=== PATIENT | female | born 1970 | race Caucasian/White ===

== ENCOUNTER → 2018-11-09 | Outpatient (CLI) | payer BC ==
--- NOTE | 2018-11-12 11:50 | MM ---
Reason for exam: screening (asymptomatic). Last mammogram was performed 1 year and 6 months ago. Physical Findings: A clinical breast exam by your physician is recommended on an annual basis and results should be correlated with mammographic findings. MG 3D Screening Mammo W/Cad Bilateral CC and MLO view(s) were taken. Prior study comparison: May 19, 2017, bilateral MG 3d screening mammo w/cad. December 10, 2010, CAD bilateral diagnostic mammogram. The breast tissue is heterogeneously dense. This may lower the sensitivity of mammography. Stable benign calcifications. There is no discrete abnormality. No significant changes when compared with prior studies. ASSESSMENT: Benign, BI-RAD 2 RECOMMENDATION: Routine screening mammogram of both breasts in 1 year.
== END ==
LOC: RADMAMWWP 08:59 → MERGE 09:20
PROVIDERS: ATTEND Obstetrics & Gynecology
DX: Z12.31 Encounter for screening mammogram for malignant neoplasm of breast (principal)
CPT/HCPCS: 77063; 77067

== ENCOUNTER → 2022-08-09 | Outpatient (CLI) | payer BC ==
[2022-08-09 14:29] LABS: Basophils # (A) 0.04 X 10*3/uL (0.00-0.10); Basophils % (A) 0.7 %; Eosinophils # (A) 0.11 X 10*3/uL (0.04-0.35); Eosinophils % (A) 1.9 %; HCT 43.1 % (37.2-46.3); Immature Grans, Automated 0.9 %; Lymphocytes # (A) 1.62 X 10*3/uL (0.90-5.00); Lymphocytes % (A) 27.9 %; MCH 28.9 pg (27.0-32.0); MCHC 32.5 g/dL (32.0-37.0); MCV 88.9 fL (80.0-97.0); Mean Platelet Volume 11.2 fL (9.5-12.2); Monocytes # (A) 0.46 X 10*3/uL (0.20-1.00); Monocytes % (A) 7.9 %; NRBC Per 100 WBC 0 /100 WBCS (0.0-0.0); Neutrophils # (A) 3.52 X 10*3/uL (1.80-7.70); Neutrophils % (A) 60.7 %; Platelet Count 306 X 10*3/uL (140-440); RBC 4.85 X 10*6/uL (4.10-5.20); RDW 13.3 % (11.5-14.5)
[2022-08-09 15:58] LABS: Estradiol 5.8 pg/mL; T4, Free (Free Thyroxine) 1.07 ng/dL (0.800-1.800)
== END | disposition home or self-care (01) ==
LOC: LABPAT 09:45
PROVIDERS: ATTEND Obstetrics & Gynecology
DX: Z01.818 Encounter for other preprocedural examination (principal); I45.19 Other right bundle-branch block; N93.8 Other specified abnormal uterine and vaginal bleeding; R94.31 Abnormal electrocardiogram [ECG] [EKG]
CPT/HCPCS: 82670; 83001; 84439; 84443; 85025; 93005

== ENCOUNTER → 2022-08-12 | Outpatient (CLI) | payer BC ==
--- NOTE | 2022-08-15 08:13 | MM ---
Reason for Exam: Screening (asymptomatic). Last mammogram was performed 3 year(s) and 9 month(s) ago. Patient History: Menarche at age 10. First Full-Term at age 27. Perimenopausal. Risk Values: Eliza 5 year model risk: 1.3%. NCI Lifetime model risk: 10.5%. Prior Study Comparison: 12/10/2010 Bilateral Diagnostic Mammogram, [facility]. 05/19/2017 Bilateral Screening Mammogram, [facility]. 11/09/2018 Bilateral Screening Mammogram, [facility]. Tissue Density: The breast tissue is heterogeneously dense. This may lower the sensitivity of mammography. Findings: Analyzed By CAD. There is no suspicious group of microcalcifications or new suspicious mass in either breast. Overall Assessment: Negative, BI-RAD 1 Management: Screening Mammogram of both breasts in 1 year. A clinical breast exam by your physician is recommended on an annual basis and results should be correlated with mammographic findings. [facility] will attempt to contact patient to return for supplemental views and ultrasound if indicated. Electronically signed and approved by: John Verdin DO
== END | disposition home or self-care (01) ==
LOC: RADMAMWWP 14:34
PROVIDERS: ATTEND Obstetrics & Gynecology
DX: Z12.31 Encounter for screening mammogram for malignant neoplasm of breast (principal)
CPT/HCPCS: 77063; 77067

== ENCOUNTER 2022-08-17 05:56 | Day surgery (SDC) | payer BC ==
[2022-08-12 12:34] VITALS: BMI 27.4
--- NOTE | 2022-08-16 07:42 | P.HPOB ---
History of Present Illness H&P Date: 08/16/22 Chief Complaint: Dysfunctional uterine bleeding, endometrial thickening. This patient is a pleasant 51-year-old 2 para 2 female who presented to my office in June with complaints of heavy irregular bleeding for about 6 months. Patient not been in the office in about 3 years. She said she does miss some menstrual cycles however became heavy and irregular. Patient had a pelvic ultrasound which showed endometrial thickening to 15 mm. She also had 2 fibroids but these were not impinging the uterine cavity. Patient now presents for hysteroscopy D&C for further evaluation. Review of Systems Genitourinary: Reports abnormal vaginal bleeding Menstruation: Reports as per HPI Past Medical History Additional Past Medical History / Comment(s): kidney stones. THICKENED UTERINE LINING WITH FIBROIDS History of Any Multi-Drug Resistant Organisms: None Reported Past Surgical History: Breast Surgery, Cholecystectomy Additional Past Surgical History / Comment(s): breast biopsy. LITHOTRIPSY. TUMMY TUCK Past Anesthesia/Blood Transfusion Reactions: No Reported Reaction Past Psychological History: No Psychological Hx Reported Smoking Status: Never smoker Past Alcohol Use History: None Reported Past Drug Use History: None Reported - Past Family History Mother History Unknown: Yes Additional Family Medical History / Comment(s): ADOPTED Medications and Allergies Home Medications Medication Instructions Recorded Confirmed Type No Known Home Medications 08/12/22 08/12/22 History Allergies Allergy/AdvReac Type Severity Reaction Status Date / Time No Known Allergies Allergy Verified 08/12/22 12:21 Exam - OBG Physical Exam Abdomen: bowel sounds normal, no diffuse tenderness, no bruit present, no guarding noted, no hepatomegaly, no splenomegaly, no mass Vulva: both: normal Vagina: normal moisture, no discharge Cervix: no lesion, no discharge Uterus: enlarged Results Transvaginal ultrasound on June 24 showed to fibroids 5.4 and 2.8 cm. Patient's endometrium was thickened to 15.4 mm. Assessment and Plan Assessment: This is a pleasant 51-year-old 2 para 2 female with dysfunctional uterine bleeding and endometrial thickening on transvaginal ultrasound. Plan is hysteroscopy and D&C for further evaluation. Patient I discussed the surgery and risks including risks of infection, bleeding, and/or uterine perforation. All the patient's questions are answered and a written consent is obtained. (1) Dysfunctional uterine bleeding Status: Acute Code(s): N93.8 - OTHER SPECIFIED ABNORMAL UTERINE AND VAGINAL BLEEDING SNOMED Code(s): 71501521847923 (2) Uterine fibroid Status: Acute Code(s): D25.9 - LEIOMYOMA OF UTERUS, UNSPECIFIED SNOMED Code(s): 48127960 (3) Endometrial thickening on ultrasound Status: Acute Code(s): R93.89 - ABNORMAL FINDINGS ON DX IMAGING OF OTH BODY STRUCTURES SNOMED Code(s): 430203371
[~2022-08-17 05:56] MED LIST: DEXAMETHASONE SOD PHOSPHATE 4 MG/ML 1 ML VIAL IV ONE; HYDROmorphone 0.5 MG/0.5 ML SYRINGE IVP PRN; LACTATED RINGERS 1,000 ML IV SCH; LIDOCAINE 1% (10MG/ML) FOR IV START INTRADERMA PRN; ONDANSETRON 4 MG/2 ML VIAL IVP ONE; Pre Op ABX Message 1 EACH MISC MISCELLANE ONE; SCOPOLAMINE 1 MG/72 HR PATCH TRANSDERM ONE
[2022-08-17 06:23] VITALS: RESP 16
[2022-08-17] MEDS ORDERED: PROPOFOL 10 MG/ML 20 ML VIAL IV ONE (06:55)
[2022-08-17] MEDS ORDERED: fentaNYL (PF) 50 MCG/ML 2 ML AMP ONE (06:55)
[2022-08-17] MEDS ORDERED: LIDOCAINE 2% INJ 20 MG/ML (2 ML VIAL) ONE (06:55)
[2022-08-17] MEDS ORDERED: MIDAZOLAM 2 MG/2 ML VIAL ONE (06:55)
[2022-08-17] MEDS ORDERED: KETOROLAC 15 MG/ML 1 ML VIAL IVP ONE (07:33)
--- NOTE | 2022-08-17 07:33 | P.OP ---
Date of Procedure: 08/17/22 Preoperative Diagnosis: #1: Dysfunctional uterine bleeding. 2: Abnormal endometrial thickening on ultrasound. Postoperative Diagnosis: Same, endometrial polyps Procedure(s) Performed: #1: Hysteroscopy. #2: Dilation and curettage. #3: Polypectomy Anesthesia: MAC Surgeon: Mauri Moran Estimated Blood Loss (ml): 10 Urine output (ml): 20 Pathology: other (Uterine curettings and endometrial polyps) Condition: stable Disposition: PACU Indications for Procedure: Please see dictated H&P for intimate details of this patient's admission. In brief summary this pleasant 51-year-old 2 para 2 female who presented to [facility] with complaints of dysfunctional uterine bleeding and had a transvaginal ultrasound which showed endometrial thickening. Patient's hormone levels were consistent with menopause and I recommended she proceed with hysteroscopy D&C for further evaluation. Patient does understand the surgery and risks and risks of infection, bleeding, possible uterine perforation. All the patient's questions are answered and written consent is obtained. Operative Findings: This patient had multiple large polyps of the endometrium that were benign appearing Description of Procedure: This patient is taken to the operating room where she is laid in supine position. She subsequent undergoes general mask anesthesia without incident. With an adequate level of anesthesia was placed in dorsal lithotomy position. She has a vaginal perineal prep and drape. Examination under anesthesia shows a mid position uterus. I placed a weighted speculum posterior vagina. Bladder is drained for 20 mL of clear urine. The Allis clamps and placed on the anterior lip of the cervix. Uterus is then gently sounded to approximately 7 cm. The cervix is then gently dilated to allow the hysteroscope easily and the uterine cavity. Using saline solution, hysteroscopy is performed and the uterine cavity is visualized. There are multiple polyps or large but benign appearing. The lining itself does look thin and somewhat atrophic. With this done the hysteroscope was removed. Cervix is dilated more to allow the polyp forceps easily into the uterine cavity. Multiple passes are made and all the polyps are removed. These are quite large. With this done a gentle but thorough 4 quadrant curettage is done. At this point procedure is ended. The Allis clamp and weighted speculum removed. All counts are correct 3. There are no complications. Patient is awakened from anesthesia and taken recovery room satisfactory condition.
[2022-08-17 07:38] VITALS: TEMP 96.8
[2022-08-17 08:20] VITALS: BP 144/84; PULSE 73
== END 2022-08-17 08:50 | disposition home or self-care (01) ==
LOC: OR 05:56
PROVIDERS: ATTEND Obstetrics & Gynecology
DX: N84.0 Polyp of corpus uteri (principal); N93.8 Other specified abnormal uterine and vaginal bleeding; R93.89 Abnormal findings on diagnostic imaging of other specified body structures; D25.9 Leiomyoma of uterus, unspecified; Z87.442 Personal history of urinary calculi; Z90.49 Acquired absence of other specified parts of digestive tract; Z98.82 Breast implant status; Z98.890 Other specified postprocedural states
CPT/HCPCS: 58558; 81025; 88305; J2250; J1100; J2405; J3010; J1885; J2704; J2001

== ENCOUNTER → 2023-05-26 | Day surgery (SDC) | payer BC ==
[2023-05-23 13:34] VITALS: BMI 28.3
[~2023-05-26] MED LIST changes: -DEXAMETHASONE SOD PHOSPHATE 4 MG/ML 1 ML VIAL IV ONE; -HYDROmorphone 0.5 MG/0.5 ML SYRINGE IVP PRN; +LACTATED RINGERS 1,000 ML IV ONE; -ONDANSETRON 4 MG/2 ML VIAL IVP ONE; +PROPOFOL 10 MG/ML 20 ML VIAL IV ONE; -Pre Op ABX Message 1 EACH MISC MISCELLANE ONE; -SCOPOLAMINE 1 MG/72 HR PATCH TRANSDERM ONE
[2023-05-26 09:35] VITALS: TEMP 97.7
--- NOTE | 2023-05-26 09:52 | P.PCN ---
Date of Procedure: 05/26/23 Procedure(s) Performed: BRIEF HISTORY: Patient is a 52-year-old pleasant white female scheduled for an elective colonoscopy as a part of screening for colon cancer. PROCEDURE PERFORMED: Colonoscopy. PREOPERATIVE DIAGNOSIS: Screening for colon cancer. IV sedation per Anesthesia. PROCEDURE: After informed consent was obtained, the patient, was brought into the endoscopy unit. IV sedation was administered by Anesthesia under continuous monitoring. Digital rectal examination was normal. Initially the Olympus CF-160 flexible video colonoscope was then inserted in the rectum, gradually advanced into the cecum without any difficulty. Careful examination was performed as the scope was gradually being withdrawn. Ileocecal valve and the appendiceal orifice were visualized and appeared normal. Prep was excellent. Mucosa of the cecum, ascending colon, transverse colon, descending colon, sigmoid colon, and rectum appeared normal. Scattered sigmoid diverticulosis. Retroflexion was performed in the rectum and no lesions were seen. The patient tolerated the procedure well. IMPRESSION: Normal-appearing colon from rectum to cecum with no evidence of colorectal neoplasia. Scattered sigmoid diverticulosis. RECOMMENDATIONS: Findings of this examination were discussed with the patient as well as a family.. She was advised to have a repeat screening colonoscopy in 10 years.
[2023-05-26 10:19] VITALS: BP 143/72; PULSE 64; RESP 16
== END ==
LOC: ORWHC2ENDO 08:50
PROVIDERS: ATTEND Internal Medicine Gastroenterology
DX: Z12.11 Encounter for screening for malignant neoplasm of colon (principal); K57.30 Diverticulosis of large intestine without perforation or abscess without bleeding; Z79.82 Long term (current) use of aspirin; Z79.899 Other long term (current) drug therapy
CPT/HCPCS: 81025; 45378; J2704

== ENCOUNTER → 2024-10-01 | Outpatient (CLI) | payer BC ==
--- NOTE | 2024-10-01 08:18 | US ---
EXAMINATION TYPE: US abdomen complete DATE OF EXAM: 10/01/2024 COMPARISON: NONE CLINICAL INDICATION: Female, 53 years old with history of N20.0 KIDNEY STONE; Pt states generalized A BD pain, states history of kidney stones, GB surgically absent TECHNIQUE: Grayscale and color Doppler imaging of the abdomen was performed. FINDINGS: EXAM MEASUREMENTS: Liver Length: 16.6 cm CBD: 0.8 cm, color Doppler imaging was utilized to isolate the common bile duct for measurement. Spleen: 9.9 cm Right Kidney: 10.3 x 5.4 x 5.2 cm Left Kidney: 10.5 x 4.7 x 4.8 cm CLOTHING PRESSER NOTES: Pancreas: wnl, tail obscured by overlying bowel gas Liver: Heterogeneous, difficult to penetrate Gallbladder: Surgically absent Evidence for sonographic Sullivan's sign: No CBD: wnl, post winsome Spleen: wnl Right Kidney: No evidence of hydro, possible 2 echogenic foci with shadowing at mid and lower pole b oth 1cm in size Left Kidney: No evidence of hydro, possible echogenic foci with shadowing at mid 0.8 cm in size Upper IVC: wnl Abd Aorta: wnl IMPRESSION: 1. Nonobstructing bilateral renal stones. [facility], , 10/01/2024 8:15 AM
== END | disposition home or self-care (01) ==
LOC: RADUSWWP 07:22
PROVIDERS: ATTEND Internal Medicine Geriatric Medicine
DX: N20.0 Calculus of kidney (principal); Z87.442 Personal history of urinary calculi
CPT/HCPCS: 76700